=== PATIENT | female | born 1960 | race African-American/Black ===

== ENCOUNTER 2017-09-28 14:41 | Emergency (ER) | payer MEDICAID ==
[~2017-09-28] VITALS: Ht 162.6 cm; Wt 58.2 kg
[2017-09-28 14:47] VITALS: BP 144/94
[2017-09-28 15:39] LABS: BASOPHILS % 1.4 % (0.0-2.0); EOSINOPHILS % 1.1 % (0.0-5.0); HEMATOCRIT. 39.8 % (36.0-48.0); HEMOGLOBIN. 13.2 g/dL (12.0-16.0); LYMPHOCYTES % 30.4 % (20.0-50.0); MEAN CORPUSCULAR HEMOGLOBIN 24.8 pg (28.0-32.0); MEAN PLATELET VOLUME 9.2 fl (7.4-10.4); MONOCYTES % 10.2 % (2.0-8.0); NEUTROPHILS % 56.9 % (40.0-76.0); PLATELET 255 x1000/uL (130-400); RED BLOOD CELL COUNT 5.32 mill/uL (4.2-5.4); RED CELL DISTRIBUTION WIDTH 13.4 % (11.6-14.6)
[2017-09-28 15:43] LABS: CHLORIDE 103 mEq/L (98-107)
== END 2017-09-28 22:28 | disposition left against medical advice (07) ==
LOC: ER 14:41
DX: M79.651 Pain in right thigh (principal); R63.4 Abnormal weight loss; F17.200 Nicotine dependence, unspecified, uncomplicated; F12.10 Cannabis abuse, uncomplicated
CPT/HCPCS: 36415; 80053; 85025; 99284

== ENCOUNTER 2017-09-30 10:25 | Emergency (ER) | payer MEDICAID ==
[~2017-09-30] VITALS: Ht 165.1 cm; Wt 58.0 kg
[2017-09-30 12:06] LABS: BASOPHILS % 0.6 % (0.0-2.0); EOSINOPHILS % 1.1 % (0.0-5.0); HEMATOCRIT. 37.9 % (36.0-48.0); MEAN CORPUSCULAR HEMOGLOBIN 23.8 pg (28.0-32.0); MEAN CORPUSCULAR VOLUME 75.4 fL (81.0-99.0); MEAN PLATELET VOLUME 8.7 fl (7.4-10.4); NEUTROPHILS % 53.3 % (40.0-76.0); PLATELET 243 x1000/uL (130-400); RED BLOOD CELL COUNT 5.03 mill/uL (4.2-5.4); RED CELL DISTRIBUTION WIDTH 13.5 % (11.6-14.6)
[2017-09-30 12:09] LABS: CHLORIDE 105 mEq/L (98-107)
[2017-09-30 12:18] LABS: T4 FREE 4.51 ng/dL (0.76-1.46)
[2017-09-30] MEDS ORDERED: IOHEXOL-300 100 ML BOTTLE ONE (12:59)
[2017-09-30 13:32] LABS: CLARITY URINE CLEAR (CLEAR); COLOR URINE YELLOW (YELLOW); KETONES URINE NEGATIVE (NEGATIVE); LEUKOCYTE ESTERASE URINE NEGATIVE (NEGATIVE); NITRITE URINE NEGATIVE (NEGATIVE); OCCULT BLOOD URINE NEGATIVE (NEGATIVE); PROTEIN URINE NEGATIVE (NEGATIVE); SPECIFIC GRAVITY URINE 1.029 (1.005-1.030); UROBILINOGEN URINE 0.2 E.U./dL (0.2-1.0)
[2017-09-30 13:55] VITALS: BP 128/63
== END 2017-09-30 14:48 | disposition home or self-care (01) ==
LOC: ER 10:25
DX: E05.90 Thyrotoxicosis, unspecified without thyrotoxic crisis or storm (principal); F12.10 Cannabis abuse, uncomplicated; M19.90 Unspecified osteoarthritis, unspecified site; J44.9 Chronic obstructive pulmonary disease, unspecified
CPT/HCPCS: 36415; 74177; 80053; 81003; 84439; 84443; 84481; 85025; 99285; J7030; Q9967; Z7610